=== PATIENT | female | born 1970 | race Caucasian/White ===

== ENCOUNTER 2019-05-17 08:36 | Emergency (ER) | payer MEDICAID ==
[~2019-05-17] VITALS: Ht 160 cm; Wt 80.0 kg
[~2019-05-17 08:36] MED LIST: CYCL10TA7 PO; HYDR-4011 PO; NAPR-985 PO
[2019-05-17 08:43] VITALS: BP 136/82; PULSE 68; RESP 18; Ht 160 cm; Wt 80.0 kg
[2019-05-17] MEDS ORDERED: ONDANSETRON (ODT) 4 MG TAB ODT STA (08:56)
[2019-05-17] MEDS ORDERED: HYDROCODONE/APAP (5/325) TAB PO ONE (09:00)
== END 2019-05-17 10:15 | disposition home or self-care (01) ==
LOC: FTE 08:36
DX: S01.81XA Laceration without foreign body of other part of head, initial encounter (principal); V43.52XA Car driver injured in collision with other type car in traffic accident, initial encounter
CPT/HCPCS: 12013; 70450; 72040; 72072; 81025; Z7502; Z7610